=== PATIENT | male | born 1955 | race Caucasian/White ===

== ENCOUNTER 2018-01-10 00:45 | Observation (INO) | payer OTHER ==
[~2018-01-10] VITALS: Ht 175.3 cm; Wt 73.6 kg
[~2018-01-10 00:45] MED LIST: ALBU90OI INH; HYDHOMSY PO; LEVFLO500 PO
[2018-01-10] MEDS ORDERED: OXYC5 PO (00:57)
[2018-01-10] MEDS ORDERED: LEVSOD50 PO (00:57)
[2018-01-10 01:23] LABS: BASOPHILS ABSOLUTE AUTO 0.03 K/mm3 (0.00-0.23); BASOPHILS PERCENT AUTO 0 % (0-2); EOSINOPHILS ABSOLUTE AUTO 0.19 K/mm3 (0.00-0.68); EOSINOPHILS PERCENT AUTO 3 % (0-6); Hematocrit 37.8 % (37.0-53.0); Hemoglobin 12.6 g/dL (13.5-17.5); IMMATURE GRAN ABSOLUTE AUTO 0.02 K/mm3 (0.00-0.10); IMMATURE GRAN PERCENT AUTO 0 % (0-1); LYMPHOCYTES ABSOLUTE AUTO 1.06 K/mm3 (0.84-5.20); LYMPHOCYTES PERCENT AUTO 14 % (21-46); MONOCYTES PERCENT AUTO 12 % (4-13); Mean Corpuscular HGB 29.9 pg (26.0-34.0); Mean Corpuscular HGB Conc 33.3 g/dL (31.5-36.5); Mean Corpuscular Volume 90 fL (80-100); Mean Platelet Volume 9.8 fL (9.1-12.4); NEUTROPHILS ABSOLUTE AUTO 5.17 K/mm3 (1.96-9.15); NEUTROPHILS PERCENT AUTO 70 % (41-73); Platelet Count 146 K/mm3 (150-400); RDW Coefficient Variation 13.1 % (11.7-14.2); RDW Standard Deviation 42.8 fL (35.1-46.3); Red Blood Cell Count 4.22 M/mm3 (4.30-5.90); White Blood Cell Count 7.37 K/mm3 (4.00-11.30)
[2018-01-10 01:34] LABS: International Normalized Ratio 1.23; Prothrombin Time Results 12.5 Sec (9.7-11.5)
[2018-01-10 01:39] LABS: Anion Gap 7 mmol/L (6-16); Blood Urea Nitrogen 19 mg/dL (8-24); Bun/Creatinine Ratio 26.5 (12.0-20.0); CO2, Blood 26 mmol/L (21-32); Calcium, Blood 7.8 mg/dL (8.5-10.1); Chloride, Blood 101 mmol/L (98-108); Creatinine, Blood 0.72 mg/dL (0.60-1.20); Glomerular Filtration Rate >60 (60-); Glucose, Blood 123 mg/dL (70-99); Potassium, Blood 3.9 mmol/L (3.5-5.5); Sodium, Blood 134 mmol/L (136-145)
[2018-01-10] MEDS ORDERED: TAMS.4ER PO (05:21)
[2018-01-10] MEDS ORDERED: BUDE6HFA INH (05:29)
[2018-01-10] MEDS ORDERED: ALBU90OI INH (05:30)
[2018-01-10] MEDS ORDERED: CYAN500 PO (06:08)
[2018-01-10] MEDS ORDERED: Colace100 MG PO (06:09)
[2018-01-10] MEDS ORDERED: FISH OIL 1,0001 EAC1 PO (06:10)
[2018-01-10] MEDS ORDERED: HYDMOR2 PO (06:12)
[2018-01-10] MEDS ORDERED: GAVILAX17 GM PO (06:13)
[2018-01-10] MEDS ORDERED: PYRI100 PO (06:13)
[2018-01-10] MEDS ORDERED: THIA100 PO (06:15)
== END 2018-01-10 07:52 | disposition left against medical advice (07) ==
LOC: ER 00:45 → MEDS 00:46
PROVIDERS: Emergency Medicine
DX: L03.116 Cellulitis of left lower limb (principal); J44.9 Chronic obstructive pulmonary disease, unspecified; Z87.891 Personal history of nicotine dependence; Z88.2 Allergy status to sulfonamides; Z79.899 Other long term (current) drug therapy; Z79.01 Long term (current) use of anticoagulants
CPT/HCPCS: 36415; 80048; 83605; 85025; 85610; 87040; 96365; 96367; 96375; 99285-25; G0378; J0690; J2543; J3010; J3370

== ENCOUNTER 2020-07-24 10:45 | Emergency (ER) | payer OTHER ==
[~2020-07-24] VITALS: Ht 175.3 cm; Wt 74.8 kg
[~2020-07-24 10:45] MED LIST changes: +BUDE6HFA INH; +CYAN500 PO; +Colace100 MG PO; +FISH OIL 1,0001 EAC1 PO; +GAVILAX17 GM PO; +HYDMOR2 PO; +LEVSOD50 PO; +OXYC5 PO; +PYRI100 PO; +TAMS.4ER PO; +THIA100 PO
[2020-07-24] MEDS ORDERED: HYDR1TAB94 PO (12:12)
== END 2020-07-24 13:25 | disposition home or self-care (01) ==
LOC: ER 10:45
DX: S22.32XA Fracture of one rib, left side, initial encounter for closed fracture (principal); J44.9 Chronic obstructive pulmonary disease, unspecified; Z79.899 Other long term (current) drug therapy; Z79.51 Long term (current) use of inhaled steroids; Z88.2 Allergy status to sulfonamides; Z87.891 Personal history of nicotine dependence; W01.198A Fall on same level from slipping, tripping and stumbling with subsequent striking against other object, initial encounter
CPT/HCPCS: 71045; 99283-25; A9270